=== PATIENT | male | born 1975 | race Caucasian/White ===

== ENCOUNTER 2017-02-23 15:50 | Emergency (ER) | payer SELFPAY ==
[~2017-02-23] VITALS: Ht 170.2 cm; Wt 79.5 kg
[2017-02-23 15:50] VITALS: BP 124/77
[2017-02-23] MEDS ORDERED: TRAM50TA2 (15:56)
[2017-02-23] MEDS ORDERED: BACL10TA2 (15:56)
[2017-02-23] MEDS ORDERED: FLUO20CA8 PO (15:56)
== END 2017-02-23 16:04 | disposition left against medical advice (07) ==
LOC: M ED 15:50
DX: R10.9 Unspecified abdominal pain (principal); Z53.21 Procedure and treatment not carried out due to patient leaving prior to being seen by health care provider

== ENCOUNTER 2020-09-11 15:54 | Observation (INO) | payer OTHER, SELFPAY ==
[~2020-09-11] VITALS: Ht 172.7 cm; Wt 85.8 kg
[~2020-09-11 15:54] MED LIST: BACL10TA2; FLUO20CA20 PO; TRAM50TA2
--- NOTE | 2020-09-11 16:27 | REP ---
INDICATION: trauma. COMPARISON: None. TECHNIQUE: Four views FINDINGS: There is a metallic radiodensity having a total length of 6 cm and having a maximal with of 5 mm at the mid and distal portions which has the appearance of a screw fastener. This foreign body is imbedded in the lateral soft tissues of the 2nd digit closely applied to the lateral cortex of the middle phalanx of the 2nd digit and without definite evidence of osseous involvement at this time. It is difficult to measure the exact length of the imbedded component. IMPRESSION: Foreign body as described above. <Electronically signed by Kenneth Mccray > 09/11/20 [id number]
[2020-09-11] MEDS ORDERED: BOOSTRIX/ADACEL VACCINE (DIPHTH/PERTUSS/ACELL/TETANUS) 0.5ML SYR IM ONE (16:45)
[2020-09-11] MEDS ORDERED: MORPHINE 10 MG/ML 1ML VIAL (J2270) IM ONE (16:45)
[2020-09-11] MEDS ORDERED: ONDANSETRON 4MG/2ML VIAL IV PRN (18:50)
[2020-09-11] MEDS ORDERED: ACETAMINOPHEN TAB 650MG DOSE (2X325MG) PO PRN (18:50)
[2020-09-11] MEDS ORDERED: ceFAZolin SOD 2 GM in D5W MINI-BAG PLUS 50 ML IV SCH (19:00)
[2020-09-11] MEDS: NS 1,000 ML IV SCH (19:40)
[2020-09-11] MEDS: traMADol 50 MG TAB PO PRN (20:12)
[2020-09-11 22:55] VITALS: BP 144/89
[2020-09-11] MEDS: NICOTINE 21MG/24HR 1 EA TRANSDERMAL TD SCH (23:12)
[2020-09-12] MEDS: traMADol 50 MG TAB PO PRN ×2 (03:39→10:17)
[2020-09-12] MEDS: NS 1,000 ML IV SCH ×2 (03:40→10:18)
[2020-09-12] MEDS: ceFAZolin SOD 2 GM in IV 1 EA IV SCH ×2 (03:40→11:34)
[2020-09-12 06:00] VITALS: BP 106/73
[2020-09-12] MEDS: NICOTINE 21MG/24HR 1 EA TRANSDERMAL TD SCH (07:46)
[2020-09-12] MEDS ORDERED: PERCOCET 5MG/325MG TAB PO ONE ×2 (08:50→15:15)
--- NOTE | 2020-09-12 09:23 | CR ---
CONSULTATION DATE: 09/11/2020 CHIEF COMPLAINT: Right foreign body index finger (wood screw) HISTORY OF PRESENT ILLNESS: A 45-year-old right hand dominant man who was building a closet at 2:30 p.m. He was placing a large wood screw through wood and into his index finger. He was seen at [facility]. He was given tetanus to be up-to-date. No prior injuries. He was working at home, not on a job site. PAST MEDICAL HISTORY: Nil. MEDICATIONS: None. ALLERGIES: No known drug allergies. PAST SURGICAL HISTORY: Scaphoid removal, two screws in his foot. SOCIAL HISTORY: He is retired and smokes two packs of cigarettes a day. Drinks alcohol 1-2 a day. PHYSICAL EXAMINATION: This is a 45-year-old man, he looks his stated age. There is a piece of wood affixed to a screw that is traversing the soft tissues on the radial side of his right index finger from palmar to dorsal. The screw tip is visible but not piercing the dorsum of his index finger. It appears in the mid aspect of his index finger. Tissues appear and well-perfused. Normal sensation on both sides of the digit. Capillary refill under 3 seconds. No pain or other problems throughout the hand. This appears overlying the soft tissues between the PIP and DIP joint. X-RAYS: Radiographs are reviewed of the finger. This shows a foreign body of the lateral soft tissues of the second digit, mostly to the lateral cortex of middle phalanx of the second digit without definite evidence of osseous involvement. ASSESSMENT AND PLAN: A 45-year-old man who has a screw embedded on the radial side of his index finger. He did try to attempt to remove this. I do recommend removal due to close proximity to the neurovascular structures as well as obvious contamination I do recommend this to be removed in the Operating Room setting to perform thorough irrigation, debridement, screw removal and possible vascular control. I explained the pros, cons, risks and benefits of nonsurgical management versus right index finger irrigation, debridement and foreign body removal. He understands and wishes to proceed. The possible surgical risks include but are not limited to infection, pain, stiffness, weakness, damage to surrounding structures, neurovascular injury, damage to bone, fracture, anesthetic complications, blood clots, stiffness of the wrist and need for further surgery, failure to remove the foreign body or retained products, blood clots, and other risks. He wished to proceed and understands. Signed a consent for possible need for blood products as well as surgical consent form. I will keep him NPO, admit to the hospital, Cefazolin 2 grams IV q. 8 hours until surgery. I let the OR know about the emergent status of the case as well. RADHA
[2020-09-12 14:00] VITALS: BP 142/83
[2020-09-12] MEDS ORDERED: BUPIVACAINE HCL 0.25% 30ML VIAL As Ordered ONE (17:41)
[2020-09-12] MEDS ORDERED: MIDAZOLAM INJ 2MG/2ML VIAL (J2250 PER 1MG) As Ordered ONE (17:45)
[2020-09-12] MEDS ORDERED: LIDOCAINE 2% 100MG/5ML SDV (FOR ANES.) As Ordered ONE (17:45)
[2020-09-12] MEDS ORDERED: propofoL 200 MG/20 ML VIAL As Ordered ONE ×2 (17:45→18:18)
[2020-09-12] MEDS ORDERED: fentaNYL 100 MCG/2 ML INJECTION (J3010) As Ordered ONE (17:45)
--- NOTE | 2020-09-12 18:59 | ROOPDOC ---
[facility] Report Of Operation Report of Operation DATE OF PROCEDURE: 09/12/20 PREPROCEDURE DIAGNOSES: Right index finger foreign body [screw]. POSTPROCEDURE DIAGNOSES: Right index finger foreign body [screw]. PROCEDURE: Right index finger irrigation and debridement and removal of foreign body. SURGEON: Dr. Rosales Rae MD RN RENAL: ANESTHESIA: Dr. Guerline cali/MAC. ESTIMATED BLOOD LOSS: Approximately 10 mL. COMPLICATIONS: None. REMARKS: None. PROCEDURE NOTE: This is a 45-year-old man was building a closet. He put a screw through the right index finger accidentally. He was given tetanus and preoperative antibiotics while awaiting for emergency OR time to be available. I discussed the pros and cons and benefits of removing the foreign body. He wished to proceed. Marked the right upper extremity proceed surgery. DESCRIPTION OF PROCEDURE: Patient was brought to the operating theater. There placed supine on the operating room table. 2 g of IV Ancef was administered. Limb is prepped and draped in the usual sterile fashion with iodine-based prep solution. Tourniquet was applied to the right upper extremity properly padded but not inflated. Preoperative timeout was performed confirming the site the patient and the surgery. Arm table used to the patient's right side. I began by grasping the screw and slowly backing this out in a counterclockwise direction. Screw was removed without difficulty. Intraoperative radiograph taken to confirm no fracture or retained foreign body. Wound edges gently debrided as well as deep tissues divided and cleaned with copious normal saline as well as a small curet. Small amount of bleeding but no pulsatile bleeding. 1 mL of quarter percent Marcaine was instilled for a digital block as well as half to 1 mL around the puncture site. Wound was cleaned with wet and dry dressing followed by application of Steri-Strips and Adaptic and gauze with Claudia wrap. Patient was woken up and transferred off the operating room table and taken to postanesthetic care unit in stable condition. All sponge needle and instrument counts correct. No complications. The patient start gentle range of motion discharge home when they are comfortable and follow up in the office 2 weeks' time. Prescription sent in for 5 day course of oral antibiotics as well as narcotic/Tylenol medication to the pharmacy. Risk factors for harms from taking opioid medications discussed and assessed including but not limited to personal or family history of substance use disorder, anxiety or depression, , age 65 or older, COPD or other underlying respiratory conditions, and renal or hepatic insufficiency. Discussed with patient concerns and determined any harms they may experience or be currently experiencing such as nausea or constipation, feeling sedated or confused, breathing interruptions during sleep, or taking or craving more opioids than prescribed or difficulty controlling use (addiction). Discussed early warning signs of overdose including confusion, sedation, slurred speech, a bnormal gait. Postoperative wound instructions were given. It was recommended to keep the wound clean and dry. Dressing changes as needed. It was reinforced with the patient that they should call us or be seen immediately for redness, drainage, or fever. . ROSALES RAE MD Sep 12, 2020 18:59
--- NOTE | 2020-09-12 19:33 | REP ---
INDICATION: OR-MINI C ARM IMAGE NEEDS TO BE SAVED. COMPARISON: Left index finger radiographs from 4:05 p.m. on this date.. TECHNIQUE: Four views. 9 seconds of fluoroscopy time is reported. FINDINGS: A sequence of 4 last image hold fluoroscopically obtained spot radiographs of the left index finger and long finger document foreign body removal. No fracture is visible. IMPRESSION: Procedural imaging.. <Electronically signed by Vishnu Sabillon > 09/12/201928
[2020-09-12] MEDS ORDERED: PERCOCET 5MG/325MG TAB PO PRN (19:40)
[2020-09-12] MEDS ORDERED: ACETAMINOPHEN TAB 650MG DOSE (2X325MG) PO PRN (19:40)
[2020-09-12] MEDS ORDERED: ONDANSETRON 4MG/2ML VIAL IV PRN (19:40)
[2020-09-12] MEDS ORDERED: MORPHINE 2 MG/ML 1ML VIAL (J2270) IV PRN (19:40)
--- NOTE | 2020-09-12 19:58 | DS.PDOC ---
Discharge Summary General Date of Admission Sep 11, 2020 at 15:55 Date of Discharge September 12, 2020 Attending Physician: STEPHAN RAE MD Discharge Summary PROCEDURES PERFORMED DURING STAY: Right index finger I and D, screw removal ADMITTING DIAGNOSES: 1.Foreign body rightindex finger. DISCHARGE DIAGNOSES: 1. Same COMPLICATIONS/CHIEF COMPLAINT: Screw In Hand. HISTORY OF PRESENT ILLNESS:Screw in right index finger HOSPITAL COURSE:Benign DISCHARGE MEDICATIONS: Please see below. ALLERGIES: Please see below. PHYSICAL EXAMINATION ON DISCHARGE: VITAL SIGNS: Please see below. GENERAL: HEENT: NECK: CARDIOVASCULAR EXAMINATION: RESPIRATORY EXAMINATION: ABDOMINAL EXAMINATION: EXTREMITIES:Right index drsg dry good perfusion SKIN: NEUROLOGICAL EXAMINATION: PSYCHIATRIC EXAMINATION: LABORATORY DATA: Please see below. IMAGING: PROGNOSIS:Good ACTIVITY: As tolerated DIET: DISCHARGE PLAN: FU at [facility] Orth[facility] 2 weeks. Antibiotics oral 5 days and pain meds sent to pharmacy DISPOSITION: . DISCHARGE INSTRUCTIONS: 1. . ITEMS TO FOLLOWUP ON ON OUTPATIENT: 1. . DISCHARGE CONDITION: Stable TIME SPENT ON DISCHARGE: Greater than 5 minutes. Vital Signs/I&Os Vital Signs Date Time Temp Pulse Resp B/P (MAP) Pulse Ox O2 Delivery O2 Flow Rate FiO2 09/12/20 19:15 98.0 75 18 129/76 (93) 99 Room Air I&O- Last 24 Hours up to 6 AM 09/12/20 06:00 Intake Total 230 ml Output Total 400 ml Balance -170 ml Microbiology Microbiology 09/11/20 Respiratory Virus Panel (PCR) (EMILY) - Final, Complete Discharge Medications No Active Prescriptions or Reported Meds Allergies Coded Allergies: No Known Allergies (Unverified , 02/23/17) STEPHAN RAE MD Sep 12, 2020 19:57
[2020-09-12 20:00] VITALS: BP 126/76
[2020-09-12 20:30] VITALS: BP 123/77
== END 2020-09-12 20:50 | disposition home or self-care (01) ==
LOC: M ED 15:54 → M ED INP 15:55 → ENRESERV 22:25 → M MSPAV 22:52
PROVIDERS: ADMIT Orthopaedic Surgery Sports Medicine; ATTEND Orthopaedic Surgery Sports Medicine
DX: S60.450A Superficial foreign body of right index finger, initial encounter (principal); W29.8XXA Contact with other powered hand tools and household machinery, initial encounter; Y92.098 Other place in other non-institutional residence as the place of occurrence of the external cause; Y93.H3 Activity, building and construction; Y99.8 Other external cause status; F17.210 Nicotine dependence, cigarettes, uncomplicated
CPT/HCPCS: 11042; 20520; 73130; 73140; 87798; 90471; 90715; 96365; 96375; 96376; 99284; J0690; J2250; J2270; J3010

== ENCOUNTER → 2021-02-07 | Outpatient (CLI) | payer OTHER ==
--- NOTE | 2021-02-07 12:35 | REP ---
INDICATION: TESTIS MASS. COMPARISON: None. TECHNIQUE: High-resolution bilateral scrotal sonography. FINDINGS: Testicular parenchyma is normal and homogeneous. No evidence of intratesticular mass lesion is seen. No hydrocele or hernia is appreciated. Left testicular dimensions are 4.1 x 1.6 x 2.4 cm. The right testis measures 4.2 x 1.8 x 2.5 cm. There are multiple tiny epididymal cysts bilaterally. The largest is on the left measuring 0.6 cm. Doppler flow is preserved to both testes with resistive indices of 0.56 on the right and 0.52 on the left. IMPRESSION: No evidence of intra testicular or scrotal mass on either side. Small epididymal cysts. Otherwise negative. <Electronically signed by Vishnu Sabillon > 02/07/21 [id number]
== END ==
LOC: M RAD 11:43
PROVIDERS: ATTEND Nurse Practitioner Family
DX: N50.89 Other specified disorders of the male genital organs (principal)

== ENCOUNTER → 2021-07-09 | Outpatient (CLI) | payer OTHER ==
[~2021-07-09] MED LIST changes: +FLUO-96 PO; -FLUO20CA20 PO; +GASTROGRAFIN SOLUTION 30ML (Q9963) As Ordered ONE; +ISOVUE-370 76% 100ML VIAL As Ordered ONE
== END ==
LOC: M RAD 16:12
PROVIDERS: ATTEND Nurse Practitioner Family
DX: R32 Unspecified urinary incontinence (principal); M51.37 Other intervertebral disc degeneration, lumbosacral region
CPT/HCPCS: 74177; Q9963; Q9967

== ENCOUNTER → 2021-07-12 | Outpatient (REF) | payer OTHER ==
[~2021-07-12] MED LIST changes: -GASTROGRAFIN SOLUTION 30ML (Q9963) As Ordered ONE; -ISOVUE-370 76% 100ML VIAL As Ordered ONE
[2021-07-12 13:28] LABS: APPEARANCE, URINE CLEAR (CLEAR); BACTERIA, URINE AUTO NEGATIVE (NEGATIVE); BILIRUBIN, URINE AUTO NEGATIVE (NEGATIVE); BLOOD, URINE BLOOD 1+ (NEGATIVE); COLOR, URINE YELLOW (YELLOW); GLUCOSE, URINE (UA) AUTO NEGATIVE (NEGATIVE); KETONE, URINE AUTO TRACE mg/dL (NEGATIVE); LEUKOCYTE ESTERASE, URINE AUTO NEGATIVE (NEGATIVE); MUCUS, URINE SMALL (NEGATIVE); NITRITE, URINE AUTO NEGATIVE (NEGATIVE); PROTEIN, URINE AUTO NEGATIVE (NEGATIVE); RBC, URINE AUTO 8 /HPF (0-3); SPECIFIC GRAVITY URINE AUTO 1.023 (1.002-1.035); SQUAMOUS EPITHELIAL CELL UR AU 0 /HPF (0-6); WBC, URINE AUTO 0 /HPF (0-3)
== END ==
LOC: M SMT 12:49
PROVIDERS: ATTEND Nurse Practitioner Women's Health
DX: R32 Unspecified urinary incontinence (principal); R31.29 Other microscopic hematuria

== ENCOUNTER → 2022-01-08 | Outpatient (CLI) | payer OTHER | LOC: M WUC 15:51 | PROVIDERS: ATTEND Student in an Organized Health Care Education/Training Program | DX: S62.307A Unspecified fracture of fifth metacarpal bone, left hand, initial encounter for closed fracture (principal); X58.XXXA Exposure to other specified factors, initial encounter ==

== ENCOUNTER 2022-06-26 12:28 | Emergency (ER) | payer OTHER ==
[~2022-06-26] VITALS: Ht 172.7 cm; Wt 77.1 kg
[2022-06-26] MEDS ORDERED: PERCOCET 5MG/325MG TAB PO ONE (13:25)
[2022-06-26] MEDS ORDERED: PERC5TAB12 PO (14:27)
[2022-06-26 14:39] VITALS: BP 143/68
== END 2022-06-26 14:41 | disposition home or self-care (01) ==
LOC: M ED 12:28
DX: S62.312A Displaced fracture of base of third metacarpal bone, right hand, initial encounter for closed fracture (principal); S62.314A Displaced fracture of base of fourth metacarpal bone, right hand, initial encounter for closed fracture; S62.316A Displaced fracture of base of fifth metacarpal bone, right hand, initial encounter for closed fracture; W22.8XXA Striking against or struck by other objects, initial encounter; F43.10 Post-traumatic stress disorder, unspecified; K57.90 Diverticulosis of intestine, part unspecified, without perforation or abscess without bleeding; F17.200 Nicotine dependence, unspecified, uncomplicated; Z79.899 Other long term (current) drug therapy; Y92.009 Unspecified place in unspecified non-institutional (private) residence as the place of occurrence of the external cause

== ENCOUNTER → 2022-06-29 | Outpatient (CLI) | payer OTHER ==
[~2022-06-29] MED LIST changes: +FLUO10CA18 PO; +MELA3TAB70 PO; +PERC5TAB12 PO; +SILD50TA PO; +[UNRECOGNIZED DRUG - CODE] PO
== END ==
LOC: M LABSMTC 11:22
PROVIDERS: ATTEND Anesthesiology
DX: Z01.812 Encounter for preprocedural laboratory examination (principal); Z11.52 Encounter for screening for COVID-19

== ENCOUNTER 2022-07-01 06:11 | Day surgery (SDC) | payer OTHER ==
[~2022-07-01] VITALS: Ht 172.7 cm; Wt 77.6 kg
[2022-07-01] MEDS ORDERED: LR 1,000 ML IV SCH ×2 (06:35→09:45)
[2022-07-01] MEDS ORDERED: LIDOCAINE 2% 100MG/5ML SDV (FOR ANES.) As Ordered ONE (07:17)
[2022-07-01] MEDS ORDERED: BUPIVACAINE HCL 0.25% 30ML VIAL As Ordered ONE (07:17)
[2022-07-01] MEDS ORDERED: BACITRACIN OINTMENT 30GM TUBE As Ordered ONE (07:17)
[2022-07-01] MEDS ORDERED: fentaNYL 250 MCG/5 ML INJECTION As Ordered ONE (07:17)
[2022-07-01] MEDS ORDERED: propofoL 200 MG/20 ML VIAL As Ordered ONE (07:17)
[2022-07-01] MEDS ORDERED: MIDAZOLAM INJ 2MG/2ML VIAL As Ordered ONE (07:17)
[2022-07-01] MEDS ORDERED: ceFAZolin 2 GM/D5W 50 ML IV BAG As Ordered ONE (07:36)
[2022-07-01] MEDS ORDERED: KETOROLAC 60MG 2ML VIAL As Ordered ONE (08:06)
[2022-07-01] MEDS ORDERED: ONDANSETRON 4MG 2ML VIAL As Ordered ONE (08:07)
[2022-07-01] MEDS ORDERED: ACETAMINOPHEN 1000MG 100ML IV BAG As Ordered ONE (08:07)
[2022-07-01] MEDS ORDERED: DESFLURANE 240 ML INHALANT As Ordered ONE (08:32)
[2022-07-01] MEDS ORDERED: ONDANSETRON 4MG 2ML VIAL IV PRN (09:45)
[2022-07-01] MEDS ORDERED: PERC5TAB12 PO (09:54)
[2022-07-01] MEDS: fentaNYL 100 MCG/2 ML INJECTION IV PRN ×2 (10:02→10:10)
[2022-07-01] MEDS: oxyCODONE 5MG TAB PO PRN ×2 (10:11→11:00)
[2022-07-01 11:30] VITALS: BP 132/73
== END 2022-07-01 11:50 | disposition home or self-care (01) ==
LOC: M SDC 06:11
PROVIDERS: ATTEND Orthopaedic Surgery Hand Surgery
DX: S62.322A Displaced fracture of shaft of third metacarpal bone, right hand, initial encounter for closed fracture (principal); S62.324A Displaced fracture of shaft of fourth metacarpal bone, right hand, initial encounter for closed fracture; S62.326A Displaced fracture of shaft of fifth metacarpal bone, right hand, initial encounter for closed fracture; X58.XXXA Exposure to other specified factors, initial encounter; Y92.89 Other specified places as the place of occurrence of the external cause; F41.8 Other specified anxiety disorders; F17.220 Nicotine dependence, chewing tobacco, uncomplicated
CPT/HCPCS: 26605; 26615; 76000; C1713; J0131; J0690; J1100; J1885; J2250; J2405; J3010; S0020

== ENCOUNTER → 2022-07-04 | Outpatient (REF) | payer OTHER ==
[2022-07-04 10:34] LABS: APPEARANCE, URINE MANUAL CLEAR (CLEAR); BILIRUBIN, URINE MANUAL NEGATIVE (NEGATIVE); BLOOD URINE MANUAL POSITIVE (NEGATIVE); COLOR, URINE MANUAL YELLOW (YELLOW); GLUCOSE, URINE (UA) MANUAL NEGATIVE (NEGATIVE); KETONE, URINE MANUAL NEGATIVE (NEGATIVE); LEUKOCYTE ESTERASE, URINE MAN TRACE (NEGATIVE); NITRITE, URINE MANUAL NEGATIVE (NEGATIVE); PROTEIN, URINE MANUAL NEGATIVE (NEGATIVE); UROBILINOGEN, URINE MANUAL NORMAL (NORMAL)
[2022-07-04 11:00] LABS: AMORPHOUS SEDIMENT, URINE SMALL AMOUNT (NEGATIVE); BACTERIA, URINE NONE SEEN; HYALINE CAST, URINE NONE SEEN /lpf (0-1); MUCUS, URINE MOD AMOUNT (NEGATIVE); SQUAMOUS EPITHELIAL CELL URINE NONE SEEN /hpf (SMALL AMT)
== END ==
LOC: M SMT 09:55
PROVIDERS: ATTEND Nurse Practitioner Women's Health
DX: R31.29 Other microscopic hematuria (principal)

== ENCOUNTER → 2022-07-10 | Outpatient (CLI) | payer OTHER | LOC: M SOG 08:59 | PROVIDERS: ATTEND Physician Assistant | DX: S62.322A Displaced fracture of shaft of third metacarpal bone, right hand, initial encounter for closed fracture (principal); S62.324A Displaced fracture of shaft of fourth metacarpal bone, right hand, initial encounter for closed fracture; S62.326A Displaced fracture of shaft of fifth metacarpal bone, right hand, initial encounter for closed fracture ==

== ENCOUNTER → 2022-08-01 | Outpatient (CLI) | payer OTHER | LOC: M SOG 13:29 | PROVIDERS: ATTEND Physician Assistant | DX: M79.641 Pain in right hand (principal); Z98.890 Other specified postprocedural states ==

== ENCOUNTER → 2022-08-12 | Outpatient (CLI) | payer OTHER | LOC: M SOG 08:26 | PROVIDERS: ATTEND Physician Assistant | DX: M79.641 Pain in right hand (principal) ==

== ENCOUNTER → 2022-08-18 | Outpatient (CLI) | payer OTHER | LOC: M RAD 16:09 | PROVIDERS: ATTEND Nurse Practitioner Family | DX: M54.50 Low back pain, unspecified (principal) ==

== ENCOUNTER → 2022-08-28 | Outpatient (CLI) | payer OTHER | LOC: M SOG 08:01 | PROVIDERS: ATTEND Physician Assistant | DX: S62.324D Displaced fracture of shaft of fourth metacarpal bone, right hand, subsequent encounter for fracture with routine healing (principal); S62.326D Displaced fracture of shaft of fifth metacarpal bone, right hand, subsequent encounter for fracture with routine healing; S62.322D Displaced fracture of shaft of third metacarpal bone, right hand, subsequent encounter for fracture with routine healing ==

== ENCOUNTER → 2022-11-25 | Outpatient (CLI) | payer OTHER | LOC: M SLEEP 20:00 | PROVIDERS: ATTEND Nurse Practitioner Family | DX: G47.33 Obstructive sleep apnea (adult) (pediatric) (principal) ==

== ENCOUNTER → 2022-11-27 | Outpatient (CLI) | payer OTHER | LOC: M SOG 08:04 | PROVIDERS: ATTEND Physician Assistant | DX: S62.322D Displaced fracture of shaft of third metacarpal bone, right hand, subsequent encounter for fracture with routine healing (principal) ==

== ENCOUNTER 2023-01-19 07:16 | Day surgery (SDC) | payer OTHER ==
[~2023-01-19] VITALS: Ht 172.7 cm; Wt 78.2 kg
[2023-01-19] MEDS ORDERED: MIDAZOLAM INJ 2MG/2ML VIAL As Ordered ONE (07:42)
[2023-01-19] MEDS ORDERED: fentaNYL 100 MCG/2 ML INJECTION As Ordered ONE (07:42)
[2023-01-19] MEDS ORDERED: LIDOCAINE 2% 100MG/5ML SDV (FOR ANES.) As Ordered ONE (07:42)
[2023-01-19] MEDS ORDERED: propofoL 200 MG/20 ML VIAL As Ordered ONE (07:42)
[2023-01-19] MEDS ORDERED: ONDANSETRON 4MG 2ML VIAL As Ordered ONE (07:43)
[2023-01-19] MEDS ORDERED: LR 1,000 ML IV SCH ×2 (07:50→09:30)
[2023-01-19] MEDS ORDERED: GLYCOPYRROLATE INJ 0.2 MG/ML 2 ML VIAL As Ordered ONE (08:59)
[2023-01-19] MEDS ORDERED: KETOROLAC 60MG 2ML VIAL As Ordered ONE (09:06)
[2023-01-19] MEDS ORDERED: ACETAMINOPHEN 1000MG 100ML IV BAG As Ordered ONE (09:13)
[2023-01-19] MEDS ORDERED: HYDROMORPHONE HCL 0.5 MG/ 0.5 ML SYRINGE IV PRN (09:30)
[2023-01-19] MEDS ORDERED: ONDANSETRON 4MG 2ML VIAL IV PRN (09:30)
[2023-01-19] MEDS ORDERED: fentaNYL 100 MCG/2 ML INJECTION IV PRN (09:30)
[2023-01-19] MEDS ORDERED: oxyCODONE 5MG TAB PO PRN (09:30)
[2023-01-19 12:04] VITALS: BP 123/86; TEMP 98; O2SAT 99
== END 2023-01-19 11:56 | disposition home or self-care (01) ==
LOC: M SDC 07:16
PROVIDERS: ATTEND Orthopaedic Surgery Hand Surgery
DX: G56.01 Carpal tunnel syndrome, right upper limb (principal); K57.92 Diverticulitis of intestine, part unspecified, without perforation or abscess without bleeding; M54.59 Other low back pain; F41.9 Anxiety disorder, unspecified; F32.A Depression, unspecified; F43.10 Post-traumatic stress disorder, unspecified; Z79.899 Other long term (current) drug therapy
CPT/HCPCS: 29848; J0131; J0665; J1100; J1885; J2250; J2405; J3010

== ENCOUNTER 2025-01-27 10:52 | Emergency (ER) | payer OTHER ==
[~2025-01-27] VITALS: Ht 172.7 cm; Wt 94.6 kg
[~2025-01-27 10:52] MED LIST changes: +CYCL-707 PO; +FLUO-290 PO; -FLUO10CA18 PO; +UNIS25TA3 PO
[2025-01-27] MEDS: KETOROLAC 30 MG/ML 1 ML VIAL IV ONE (12:22)
[2025-01-27 12:35] LABS: BASO # 0.1 10^3/uL (0.0-0.2); BASO % 0.8 % (0.0-1.0); EOS # 0.4 10^3/uL (0.0-0.5); EOS % 3.6 % (0.0-3.0); LYMPH # 3.6 10^3/uL (1.5-5.0); LYMPH % 33.6 % (24.0-44.0); MONO # 0.8 10^3/uL (0.0-0.8); MONO % 7.8 % (2.0-8.0); NEUTROPHILS # 5.8 10^3/uL (1.5-8.5); NEUTROPHILS % 53.7 % (36.0-66.0); PLATELET COUNT, AUTOMATED 349 10^3/uL (150-450)
[2025-01-27 13:10] LABS: CALCIUM LEVEL 9.4 MG/DL (8.5-10.1); CARBON DIOXIDE LEVEL 28 MMOL/L (20-31); CHLORIDE LEVEL 103 MMOL/L (98-107); CREATININE FOR GFR 1.01 MG/DL (0.70-1.30); GLOMERULAR FILTRATION RATE > 90.0 (>60); POTASSIUM SERUM 4.6 MMOL/L (3.5-5.1); SODIUM LEVEL 140 MMOL/L (136-145)
[2025-01-27] MEDS ORDERED: ISOVUE-370 76% 100 ML VIAL As Ordered ONE (13:42)
[2025-01-27 14:45] VITALS: BP 143/96; TEMP 97.5; O2SAT 97
[2025-01-27] MEDS ORDERED: PERC5TAB12 PO (14:55)
== END 2025-01-27 15:14 | disposition home or self-care (01) ==
LOC: M ED 10:52
DX: K42.9 Umbilical hernia without obstruction or gangrene (principal); K76.0 Fatty (change of) liver, not elsewhere classified; F17.210 Nicotine dependence, cigarettes, uncomplicated; F10.10 Alcohol abuse, uncomplicated; Z79.899 Other long term (current) drug therapy
CPT/HCPCS: 74177; 80048; 83605; 85025; 96374; 99284; J1885; Q9967

== ENCOUNTER 2025-03-28 12:02 | Day surgery (SDC) | payer OTHER ==
[~2025-03-28] VITALS: Ht 172.7 cm; Wt 92.1 kg
[2025-03-28] MEDS ORDERED: ROCURONIUM BROMIDE 50MG/5ML VIAL As Ordered ONE (12:32)
[2025-03-28] MEDS ORDERED: MIDAZOLAM INJ 2 MG/2 ML VIAL As Ordered ONE (12:32)
[2025-03-28] MEDS ORDERED: KETOROLAC 30 MG/ML 1 ML VIAL As Ordered ONE (12:32)
[2025-03-28] MEDS ORDERED: LIDOCAINE 2% 100 MG/5 ML SDV (FOR ANES.) As Ordered ONE (12:32)
[2025-03-28] MEDS ORDERED: ONDANSETRON 4MG/2ML VIAL As Ordered ONE (12:32)
[2025-03-28] MEDS ORDERED: dexAMETHasone 4 MG/ML 1 ML VIAL As Ordered ONE (12:32)
[2025-03-28] MEDS ORDERED: GLYCOPYRROLATE INJ 0.2 MG/ML 2 ML VIAL As Ordered ONE (12:32)
[2025-03-28] MEDS ORDERED: ACETAMINOPHEN 1000MG/100ML IV BAG As Ordered ONE (12:33)
[2025-03-28] MEDS: LR 1,000 ML IV SCH (12:50)
[2025-03-28] MEDS: ceFAZolin SODIUM 2 GM in DEXTROSE 5% (D5W) ADV/MINI-BAG 50 ML IV ONE (13:45)
[2025-03-28] MEDS: HEPARIN SOD 5000 UNITS/ML 1 ML VIAL/SYRINGE As Ordered ONE (13:46)
[2025-03-28] MEDS: HEPARIN SOD 5000 UNITS/ML 1 ML VIAL/SYRINGE SQ ONE (13:59)
[2025-03-28] MEDS ORDERED: HYDROmorphone HCL 2 MG/ML 1 ML VIAL As Ordered ONE (14:22)
[2025-03-28] MEDS ORDERED: SUGAMMADEX SODIUM 200 MG/2 ML VIAL As Ordered ONE (14:39)
[2025-03-28] MEDS ORDERED: diphenhydrAMINE 50 MG/ML VIAL IV PRN (15:35)
[2025-03-28] MEDS ORDERED: HYDROMORPHONE HCL 0.5 MG/0.5 ML SYRINGE IV PRN (15:35)
[2025-03-28] MEDS ORDERED: MEPERIDINE 25 MG/ML 1 ML VIAL IV PRN (15:40)
[2025-03-28] MEDS: ONDANSETRON 4MG/2ML VIAL IV PRN (15:45)
[2025-03-28] MEDS: HYDROMORPHONE HCL 0.5 MG/0.5 ML SYRINGE IV PRN (16:00)
[2025-03-28 17:01] VITALS: BP 119/70; TEMP 97.7; O2SAT 96
== END 2025-03-28 17:12 | disposition home or self-care (01) ==
LOC: M SDC 12:02
PROVIDERS: ATTEND Surgery
DX: K42.0 Umbilical hernia with obstruction, without gangrene (principal); K21.9 Gastro-esophageal reflux disease without esophagitis; F17.210 Nicotine dependence, cigarettes, uncomplicated
CPT/HCPCS: 49592; C1781; J0131; J0665; J0688; J1100; J1171; J1596; J1885; J2250; J2405; J3010; S2900